=== PATIENT | male | born 1970 | race Caucasian/White ===

== ENCOUNTER → 2017-01-15 | Outpatient (CLI) | payer OTHER ==
--- NOTE | 2017-01-15 12:35 | DIAGNOSTIC IMAGING REPORT ---
ABD/PELVIS NO IV OR ORAL CONT HISTORY:48 [id number] Abdominal bloating COMPARISON: None available TECHNIQUE: Multiple axial CT images of the abdomen and pelvis were obtained without contrast. FINDINGS: The imaged lung bases are clear. No pneumoperitoneum identified. The inferior cardiac chambers are unremarkable. There is diffuse fatty infiltration of the liver. The spleen, pancreas, gallbladder and adrenal glands are within normal limits. The kidneys, ureters and urinary bladder are unremarkable. 2 mm punctate radiodensity of the central prostate seen on image 436 of the thin section images is thought to reflect a prostate calcification rather than a prostatic urethral calculus. No bulky retroperitoneal adenopathy is seen. There is no bowel obstruction. Colon and appendix also appear normal. There is a radiopaque structure along the anterior abdominal wall just inferior to the umbilicus suggesting herniorrhaphy mesh. There is diastases recti without large recurrent hernia identified. The bones appear intact. No significant degenerative changes are seen within the spine. IMPRESSION: 1. No acute intra-abdominal or intrapelvic abnormality identified. 2. Prior ventral abdominal wall herniorrhaphy without recurrent hernia identified. 3. Fatty infiltration of the liver. The above report was generated using voice recognition software. It may contain grammatical, syntax or spelling errors. Electronically signed by: Goran Persaud M.D. 01/15/2017 12:33 PM Dictated Date/Time: 01/15/2017 12:27 PM
== END | disposition home or self-care (01) ==
LOC: C.CTS 12:07
PROVIDERS: ATTEND Physician Assistant
DX: R14.0 Abdominal distension (gaseous) (principal); K76.0 Fatty (change of) liver, not elsewhere classified

== ENCOUNTER → 2017-03-06 | Outpatient (CLI) | payer OTHER | END | disposition home or self-care (01) | LOC: C.PATHSPEC 17:04 | PROVIDERS: ATTEND Urology | DX: N40.1 Benign prostatic hyperplasia with lower urinary tract symptoms (principal); R31.0 Gross hematuria; R33.9 Retention of urine, unspecified ==